=== PATIENT | female | born 2000 | race Two or more races ===

== ENCOUNTER 2021-06-21 17:55 | Inpatient (IN) | payer OTHER ==
[~2021-06-21] VITALS: Ht 154.9 cm; Wt 129.0 kg
[2021-06-23] MEDS ORDERED: PRENATAL + DHA1 EAC1 PO (09:16)
== END 2021-06-23 17:04 | disposition home or self-care (01) | DRG 807 ==
LOC: LDR 17:55 → OB/GYN 17:55
PROVIDERS: ADMIT Obstetrics & Gynecology; ATTEND Obstetrics & Gynecology
PROC: 10E0XZZ Delivery of Products of Conception, External Approach (ICD-10-PCS; principal; 2021-06-21)
PROC: 4A1HXFZ Monitoring of Products of Conception, Cardiac Rhythm, External Approach (ICD-10-PCS; 2021-06-21)
DX: O80 Encounter for full-term uncomplicated delivery (principal); Z37.0 Single live birth; Z3A.38 38 weeks gestation of pregnancy